=== PATIENT | female | born 1950 | race Caucasian/White ===

== ENCOUNTER → 2019-12-25 | Outpatient (CLI) | payer MEDICARE, OTHER ==
--- NOTE | 2019-12-25 11:24 | KCIC ---
MRI left knee without contrast dated 12/25/2019. No comparison available. CLINICAL INDICATION: Left knee pain. TECHNIQUE: Routine multiplanar multisequence MR imaging performed. FINDINGS: Bone marrow signal is homogeneous. No marrow edema. Mild thinning and surface irregularity of the articular cartilage throughout. Suspected small zones of full-thickness cartilage loss at the weightbearing surfaces medial femoral condyle and medial tibial plateau. Tiny joint effusion. No loose body. No significant popliteal cyst. Anterior cruciate and posterior cruciate ligaments intact. Medial and lateral collateral complexes intact. Iliotibial band, popliteus tendon and pes anserine complex within normal limits. Quadriceps and patellar tendon are intact. No abnormality of the medial or lateral retinaculum. There is a linear band of increased signal at the posterior horn/body of medial meniscus that appears to extend to the femoral articular surface on one coronal slice (series 8 image 12) and there is mild blunting of the free to the medial meniscal body in this region. Anterior horn and posterior horn are otherwise intact. Lateral meniscus is normal in morphology and signal. IMPRESSION: 1. Suspected small complex tear at the posterior horn/body of medial meniscus. 2. Mild tricompartmental degenerative arthrosis and chondromalacia. Suspected small zones of full-thickness cartilage loss at the medial compartment. 3. Small joint effusion. Electronically signed by: Adi Leach MD (12/25/2019 11:21 AM) [id number]
== END | disposition home or self-care (01) ==
LOC: KCIC MRI 10:03
PROVIDERS: ATTEND Orthopaedic Surgery Adult Reconstructive Orthopaedic Surgery
DX: M17.12 Unilateral primary osteoarthritis, left knee (principal); M94.262 Chondromalacia, left knee; M25.462 Effusion, left knee
CPT/HCPCS: 73721

== ENCOUNTER → 2020-08-18 | Outpatient (CLI) | payer MEDICARE, OTHER ==
--- NOTE | 2020-08-18 10:09 | KCIC ---
Examination: MRI of the left shoulder without contrast HISTORY: History of left shoulder impingement, pain, decreased range of motion COMPARISON: None available TECHNIQUE: Multiplanar, multisequence MR imaging of the left shoulder performed without contrast. FINDINGS: The long head of the biceps tendon within the bicipital groove. The attachment of the long head the biceps tendon to the superior labral anchor grossly appears intact. The attachment of the subscapularis, supraspinatus, infraspinatus tendon grossly appears intact. The muscle bulk grossly appears unremarkable. Moderate degenerative changes acromioclavicular joint with small subchondral cystic changes. There is downsloping of the acromion with the inferior aspect of the distal clavicle and acromion abutting the supraspinatus tendon. The acromion is type II. The visualized labrum grossly appears unremarkable. There is small amount of fluid identified in subacromial subdeltoid bursa. There is mild obscuration of fat in the in the rotator interval. Moderate joint space loss identified in the glenohumeral joint. IMPRESSION: 1. Small amount of fluid identified in subacromial subdeltoid bursa likely bursitis. There is downsloping of the acromion with the inferior aspect of the distal clavicle and acromion abutting the supraspinatus tendon. Correlate for impingement. 2. Mild tendinosis rotator cuff. 3. Moderate degenerative changes acromioclavicular joint. 4. Mild obscuration of fat in the interval. Correlate for adhesive capsulitis. Electronically signed by: Teofilo Ryan MD (08/18/2020 10:06 AM) [id number]
== END ==
LOC: EDSEX → KCIC MRI 08:30
PROVIDERS: ATTEND Orthopaedic Surgery Hand Surgery
DX: M19.012 Primary osteoarthritis, left shoulder (principal); M76.42 Tibial collateral bursitis [Pellegrini-Stieda], left leg; M75.42 Impingement syndrome of left shoulder; M75.80 Other shoulder lesions, unspecified shoulder
CPT/HCPCS: 73221

== ENCOUNTER → 2020-08-19 | Outpatient (CLI) | payer MEDICARE, OTHER ==
--- NOTE | 2020-08-19 09:45 | KCIC ---
Examination: MRI of the left knee without contrast HISTORY: History of left knee pain medially COMPARISON: 12/25/2019 COMPARISON: None available TECHNIQUE: Multiplanar, multisequence MR imaging of the left knee was performed without contrast. FINDINGS: The anterior cruciate ligament, posterior cruciate ligament appear intact. There is attenuation and blunting of the body of the medial meniscus could be prior surgical change or retear. The lateral meniscus appears intact. The medial collateral ligament is intact. Lateral collateral ligamentous complex including the fibular collateral ligament, biceps femoris tendon, popliteus and appears intact. The extensor mechanism is intact. The extensor mechanism is intact. There is mild superficial fraying of cartilage identified in the medial, lateral, patellofemoral compartments. Small knee joint effusion with a tiny popliteal cyst. Mild trabecular edema identified in the proximal medial tibia. IMPRESSION: 1. Attenuation and blunting of the body of the medial meniscus could be prior surgical changes or retear. 2. Small knee joint effusion with a tiny popliteal cyst. 3. Grade I chondromalacia medial, lateral, patellofemoral compartments. 4. Mild trabecular edema identified in the proximal medial tibia could be stress reactive change. Electronically signed by: Teofilo Ryan MD (08/19/2020 9:42 AM) [id number]
== END ==
LOC: KCIC MRI 08:34
PROVIDERS: ATTEND Orthopaedic Surgery Adult Reconstructive Orthopaedic Surgery
DX: M25.462 Effusion, left knee (principal); M94.262 Chondromalacia, left knee
CPT/HCPCS: 73721